=== PATIENT | female | born 1965 | race Hispanic/Latino ===

== ENCOUNTER 2017-03-21 10:54 | Emergency (ER) | payer OTHER ==
[~2017-03-21] VITALS: Ht 165.1 cm; Wt 74.4 kg
[~2017-03-21 10:54] MED LIST: ABREVA2 GM TOP; ADVIL200 M1 PO; NAPROXEN500 MG PO; NORCO 5-325 TA1 EACH PO; VALACYCLOVIR500 MG PO
== END 2017-03-21 11:12 | disposition home or self-care (01) ==
LOC: ED 10:54
DX: Z00.8 Encounter for other general examination (principal)

== ENCOUNTER 2019-07-07 12:14 | Emergency (ER) | payer OTHER ==
[~2019-07-07] VITALS: Ht 165.1 cm; Wt 90.7 kg
[~2019-07-07 12:14] MED LIST changes: +PREDNISONE10 MG PO
== END 2019-07-07 14:33 | disposition home or self-care (01) ==
LOC: ED 12:14
DX: S46.911A Strain of unspecified muscle, fascia and tendon at shoulder and upper arm level, right arm, initial encounter (principal); X58.XXXA Exposure to other specified factors, initial encounter; Z88.0 Allergy status to penicillin
CPT/HCPCS: 73030; 96372; 99283-25; J1885